=== PATIENT | male | born 1960 | race Caucasian/White ===

== ENCOUNTER 2018-11-17 10:46 | Day surgery (SDC) | payer OTHER ==
[2018-11-16 10:57] VITALS: Ht 177.8 cm; Wt 88.6 kg
[~2018-11-17] VITALS: Ht 177.8 cm; Wt 88.6 kg
[2018-11-17] VITALS (13 sets, daily range): BP systolic 123–148; BP diastolic 71–82; PULSE 52–77; RESP 13–20
--- NOTE | 2018-11-17 09:26 | HPN ---
Date/Time of Note Date/Time of Note DATE: 11/17/18 TIME: 09:26 Interval H&P Admission Note Pt. seen H&P reviewed: No system changes ILIA MCCLOUD MD November 17, 2018 09:26
[~2018-11-17 10:46] MED LIST: CEFAZOLIN 1 GM INJ ONE; CEFAZOLIN 2 GM/50 ML (PMX) 50 ML IVPB SCH; PROPOFOL 200 MG INJ ONE
[2018-11-17] MEDS ORDERED: GLIP10TA14 PO (11:57)
[2018-11-17] MEDS ORDERED: SIMV20TA20 PO (11:57)
[2018-11-17] MEDS ORDERED: METF100010 PO (11:57)
[2018-11-17] MEDS ORDERED: AMLO-147 PO (11:57)
[2018-11-17] MEDS: LACTATED RINGER'S 1,000 ML IV SCH ×2 (11:58→13:59)
[2018-11-17] MEDS ORDERED: ASPI-818 PO (12:03)
[2018-11-17] MEDS ORDERED: SITA100T11 PO (12:03)
[2018-11-17] MEDS ORDERED: OMEP20CA16 PO (12:03)
--- NOTE | 2018-11-17 12:17 | PREAC ---
Date/Time of Note Date/Time of Note DATE: 11/17/18 TIME: 12:15 Anesthesia Eval and Record Evaluation Time Pre-Procedure Interview DATE: 11/17/18 TIME: 12:15 Age 58 Sex male NPO: 8 hrs Preoperative diagnosis right renal stones Planned procedure right eswl Past Medical History Past Medical History: Includes Cardio: HTN, Dyslipidemia Endo: Diabetes Renal: Other (bph) Surgery & Anesthesia Issues No known issue Meds Anticoagulation: No Beta Yvonne within 24 hr: No Reason Beta Yvonne not given: Pt. not on B-Yvonne Reported Medications Aspirin (Aspirin Low Dose) 81 Mg Tablet.dr, 81 MG PO DAILY 11/17/18 Omeprazole* (Omeprazole*) 20 Mg Capsule.dr, 20 MG PO DAILY, #30 CAP 11/17/18 Sitagliptin* (Januvia*) 100 Mg Tablet, 100 MG PO DAILY, #30 TAB 11/17/18 Amlodipine Besylate* (Amlodipine Besylate*) 10 Mg Tablet, 10 MG PO DAILY 11/17/18 Glipizide* (Glipizide*) 10 Mg Tablet, 10 MG PO BID 11/17/18 Metformin Hcl* (Metformin Hcl*) 1,000 Mg Tablet, 1000 MG PO BID 11/17/18 Simvastatin (Simvastatin) 20 Mg Tablet, 20 MG PO DAILY 11/17/18 Current Medications Cefazolin Sodium/ Dextrose 50 ml @ 100 mls/hr PRE-OP IVPB ; Start 11/17/18 at 06:00; Stop 11/17/18 at 15:00 Lactated Ringer's 1,000 ml @ 25 mls/hr Q24H IV Last administered on 11/17/18at 11:58; Admin Dose 25 MLS/HR; Start 11/17/18 at 11:43 Meds reviewed: Yes Allergies Coded Allergies: No Known Allergy (Unverified , 11/16/18) Allergies Reviewed: Yes Labs/Studies Labs Reviewed: Reviewed by anesthesiologist test: N/A Studies: ECG, CXR Pre-procedure Exam Last vitals Vital Signs Date Temp Pulse Resp B/P (MAP) Pulse Ox O2 O2 Flow FiO2 Time Delivery Rate 11/17/18 97.7 77 16 125/72 99 Room Air 11:47 (89) Airway: Adequate mouth opening, Adequate thyromental dist Mallampati: Mallampati II Teeth: Normal Lung: Normal Heart: Normal ASA Physical Status ASA physical status: 2 Emergency: None Planned Anesthetic General/MAC: LMA Planned Pain Management Parenteral pain med Pre-operative Attestations Prior to commencing anesthesia and surgery, the patient was re-evaluated, there was verification of: *The patient's identity *The results of appropriate recent lab work and preoperative vital signs *The above evaluation not changing prior to induction *Anesthetic plan, risk benefits, alternative and complications discussed with patient/family; questions answered; patient/family understands, accepts and wishes to proceed. TIMUR LACY November 17, 2018 12:17
[2018-11-17] MEDS ORDERED: PROPOFOL 60 ML ONE (12:34)
[2018-11-17] MEDS ORDERED: ROCURONIUM 50 MG INJ ONE (12:34)
[2018-11-17] MEDS ORDERED: LIDOCAINE 2% (SDV) 5 ML INJ ONE (12:34)
[2018-11-17] MEDS ORDERED: NEOSTIGMINE 3 MG/3 ML SYRINGE ONE (13:31)
[2018-11-17] MEDS ORDERED: GLYCOPYRROLATE 0.4 MG INJ ONE (13:31)
[2018-11-17] MEDS ORDERED: FUROSEMIDE 20 MG INJ ONE (13:46)
--- NOTE | 2018-11-17 13:48 | OPR ---
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 He was positioned in the supine position on the lithotripsy machine table. He was given general anesthesia and 2 g of Ancef at the start of the procedure. Timeout was done and the patient was identified by his name, birthdate, the procedure and the side of the procedure. The stone located in the right kidney and measuring 15 mm was then visualized on both screens. The shockwave lithotripsy was then started. The energy level started with 3 KV and went up to 7 gradually. The position of the stone was checked regularly every 200 shockwaves. The stone appeared to be breaking well and the total shockwaves delivered were 2400 shocks. The patient tolerated the procedure well and was transferred to the recovery room in a stable and satisfa ctory condition. ILIA MCCLOUD MD November 17, 2018 13:48
[2018-11-17] MEDS ORDERED: hydrALAzine 20 MG INJ IV PRN (14:00)
[2018-11-17] MEDS ORDERED: MEPERIDINE 25 MG INJ IV PRN (14:00)
[2018-11-17] MEDS ORDERED: FUROSEMIDE 20 MG INJ IV ONE (14:00)
[2018-11-17] MEDS ORDERED: FENTAnyl 50 MCG/ML VIAL IV PRN ×3 (14:00)
[2018-11-17] MEDS ORDERED: METOCLOPRAMIDE 10 MG INJ IV PRN (14:00)
[2018-11-17] MEDS ORDERED: HYDROCODONE/APAP (5/325) TAB PO PRN (14:00)
[2018-11-17] MEDS ORDERED: HYDROmorphONE 1 MG/5 ML IV SYRINGE IV PRN ×2 (14:00)
[2018-11-17] MEDS ORDERED: OXYCODONE/ACETAMINOPHEN (5/325) TAB PO PRN ×2 (14:00)
[2018-11-17] MEDS ORDERED: LABETALOL HCL 20MG INJ IV PRN (14:00)
[2018-11-17] MEDS ORDERED: DIPHENHYDRAMINE 50 MG INJ IV PRN (14:00)
[2018-11-17] MEDS ORDERED: KETOROLAC 30 MG INJ IV PRN (14:00)
[2018-11-17] MEDS ORDERED: ONDANSETRON 4 MG INJ IV PRN ×2 (14:00)
[2018-11-17] MEDS ORDERED: EPHEDrine 25 MG/5 ML SYG IV PRN (14:00)
--- NOTE | 2018-11-17 14:00 | PAC ---
Date/Time of Note Date/Time of Note DATE: 11/17/18 TIME: 14:00 Post-Anesthesia Notes Post-Anesthesia Note Last documented vital signs Vital Signs Date Temp Pulse Resp B/P (MAP) Pulse Ox O2 O2 Flow FiO2 Time Delivery Rate 11/17/18 97.7 77 16 125/72 99 Room Air 1400 (89) Activity: WNL Respiratory function: WNL Cardiovascular function: WNL Mental status: Baseline Pain reasonably controlled: Yes Hydration appropriate: Yes Nausea/Vomiting absent: Yes TIMUR LACY November 17, 2018 14:00
== END 2018-11-17 15:31 | disposition home or self-care (01) ==
LOC: SDS 10:46
PROVIDERS: ATTEND Urology
DX: N20.0 Calculus of kidney (principal); I10 Essential (primary) hypertension; E11.9 Type 2 diabetes mellitus without complications; Z79.82 Long term (current) use of aspirin; Z79.84 Long term (current) use of oral hypoglycemic drugs
CPT/HCPCS: 50590; 74430; 82962; J0690; J1170; J1940; J2405; J2710; J3010; Z7512; Z7610

== ENCOUNTER 2018-11-21 00:37 | Inpatient (IN) | payer OTHER ==
[~2018-11-21] VITALS: Ht 175.3 cm; Wt 90.1 kg
[~2018-11-21 00:37] MED LIST changes: +AMLO-147 PO; +ASPI-818 PO; -CEFAZOLIN 1 GM INJ ONE; -CEFAZOLIN 2 GM/50 ML (PMX) 50 ML IVPB SCH; +GLIP10TA14 PO; +METF100010 PO; +OMEP20CA16 PO; -PROPOFOL 200 MG INJ ONE; +SIMV20TA20 PO; +SITA100T11 PO
[2018-11-21 00:41] VITALS: Ht 175.3 cm; Wt 90.1 kg
[2018-11-21] MEDS ORDERED: ONDANSETRON 4 MG INJ IV STA (01:12)
[2018-11-21] MEDS ORDERED: HYDROmorphONE 1 MG/ML SYG IV STA (01:12)
[2018-11-21] MEDS ORDERED: SOD CHLORIDE 0.9% 1,000 ML IV STA (01:12)
[2018-11-21] MEDS ORDERED: HYDROmorphONE 0.5 MG/0.5 ML SYG IV STA (02:53)
[2018-11-21] MEDS ORDERED: TAMSULOSIN (SR) 0.4 MG CAP PO ONE (03:00)
[2018-11-21] MEDS ORDERED: ACETAMINOPHEN 325 MG TAB PO PRN (03:00)
[2018-11-21] MEDS ORDERED: NACL 0.9% 3 ML SYG IV SCH (03:00)
[2018-11-21] MEDS ORDERED: ONDANSETRON 4 MG INJ IV PRN (03:00)
[2018-11-21] MEDS ORDERED: DOCUSATE SODIUM 100 MG CAP PO PRN (03:00)
[2018-11-21] MEDS ORDERED: HYDROmorphONE 0.5 MG/0.5 ML SYG IV PRN (03:00)
[2018-11-21] MEDS ORDERED: BISACODYL (EC) 5 MG TAB PO PRN (03:00)
[2018-11-21] MEDS ORDERED: KETOROLAC 15 MG INJ IV PRN (03:00)
[2018-11-21 03:50] VITALS: BP 167/67; RESP 16
--- NOTE | 2018-11-21 04:10 | ERD ---
ER Documentation Chief Complaint Chief Complaint post op kidney surgery(stone)3 days ago, c/o right abd pain HPI Is a 58-year-old male comes in with complaints of postop pain from lithotripsy. He complains of increasing flank pain over the past 2 to 3 days. Denies any fevers or chills. Mild nausea but no vomiting. Pain is mild to moderate intensity with no exacerbating or alleviating factors. ROS All systems reviewed and are negative except as per history of present illness. Medications Home Meds Reported Medications Aspirin (Aspirin Low Dose) 81 Mg Tablet.dr, 81 MG PO DAILY 11/17/18 Omeprazole* (Omeprazole*) 20 Mg Capsule.dr, 20 MG PO DAILY, #30 CAP 11/17/18 Sitagliptin* (Januvia*) 100 Mg Tablet, 100 MG PO DAILY, #30 TAB 11/17/18 Amlodipine Besylate* (Amlodipine Besylate*) 10 Mg Tablet, 10 MG PO DAILY 11/17/18 Glipizide* (Glipizide*) 10 Mg Tablet, 10 MG PO BID 11/17/18 Metformin Hcl* (Metformin Hcl*) 1,000 Mg Tablet, 1000 MG PO BID 11/17/18 Simvastatin (Simvastatin) 20 Mg Tablet, 20 MG PO DAILY 11/17/18 Allergies Allergies: Coded Allergies: No Known Allergy (Unverified , 11/16/18) PMhx/Soc History of Surgery: Yes (KIDNEY ) Anesthesia Reaction: No Hx Neurological Disorder: No Hx Respiratory Disorders: No Hx Cardiac Disorders: Yes (HTN, HIGH CHOLESTEROL) Hx Psychiatric Problems: No Hx Miscellaneous Medical Probl: No Hx Alcohol Use: No Hx Substance Use: No Hx Tobacco Use: Yes Smoking Status: Current every day smoker Physical Exam Vitals Vital Signs Date Temp Pulse Resp B/P (MAP) Pulse Ox O2 O2 Flow FiO2 Time Delivery Rate 11/21/18 82 19 133/79 97 Room Air 02:29 (97) 11/21/18 99.7 91 18 154/78 96 00:41 (103) Physical Exam Const: No acute distress Head: Atraumatic Eyes: Normal Conjunctiva ENT: Normal External Ears, Nose and Mouth. Neck: Full range of motion. No meningismus. Resp: Clear to auscultation bilaterally Cardio: Regular rate and rhythm, no murmurs Abd: Soft, non tender, non distended. Normal bowel sounds Skin: No petechiae or rashes Back: No midline or flank tenderness Ext: No cyanosis, or edema Neur: Awake and alert Psych: Normal Mood and Affect Result Diagram: 11/21/18 0120 11/21/18 0120 Results 24 hrs Laboratory Tests Test 11/21/18 01:20 White Blood Count 11.4 10^3/ul Red Blood Count 4.77 10^6/ul Hemoglobin 13.1 g/dl Hematocrit 39.0 % Mean Corpuscular Volume 81.8 fl Mean Corpuscular Hemoglobin 27.5 pg Mean Corpuscular Hemoglobin Concent 33.6 g/dl Red Cell Distribution Width 12.6 % Platelet Count 209 10^3/UL Mean Platelet Volume 11.5 fl Immature Granulocytes % 0.400 % Neutrophils % 75.4 % Lymphocytes % 15.7 % Monocytes % 7.7 % Eosinophils % 0.3 % Basophils % 0.5 % Nucleated Red Blood Cells % 0.0 /100WBC Immature Granulocytes # 0.040 10^3/ul Neutrophils # 8.6 10^3/ul Lymphocytes # 1.8 10^3/ul Monocytes # 0.9 10^3/ul Eosinophils # 0.0 10^3/ul Basophils # 0.1 10^3/ul Nucleated Red Blood Cells # 0.0 10^3/ul Sodium Level 135 mmol/L Potassium Level 4.1 mmol/L Chloride Level 96 mmol/L Carbon Dioxide Level 26 mmol/L Anion Gap 13 Blood Urea Nitrogen 17 mg/dl Creatinine 0.73 mg/dl Est Glomerular Filtrat Rate mL/min > 60 mL/min Glucose Level 230 mg/dl Calcium Level 9.3 mg/dl Total Bilirubin 0.8 mg/dl Direct Bilirubin 0.00 mg/dl Indirect Bilirubin 0.8 mg/dl Aspartate Amino Transf (AST/SGOT) 17 IU/L Alanine Aminotransferase (ALT/SGPT) 21 IU/L Alkaline Phosphatase 77 IU/L Total Protein 7.6 g/dl Albumin 4.3 g/dl Globulin 3.30 g/dl Albumin/Globulin Ratio 1.30 Lipase 33 U/L Current Medications Medications Dose Sig/Candy Start Time Status Last (Trade) Ordered Route PRN Stop Time Admin Dose Reason Admin Sodium 1,000 ml @ Q1H STAT 11/21/18 DC 11/21/18 Chloride 1,000 mls/hr IV 01:12 01:16 11/21/18 02:11 1 mg ONCE STAT 11/21/18 DC 11/21/18 Hydromorphone IV 01:12 01:16 HCl 11/21/18 01:14 (Dilaudid) Ondansetron 4 mg ONCE STAT 11/21/18 DC 11/21/18 HCl (Zofran IV 01:12 01:16 Inj) 11/21/18 01:14 1 mg ONCE STAT 11/21/18 DC 11/21/18 Hydromorphone IV 02:53 03:24 HCl 11/21/18 02:54 (Dilaudid) Sodium 1,000 ml @ Q10H IV 11/21/18 Chloride 100 mls/hr 02:57 IV Flush 3 ml PER 11/21/18 (NS 3 ml) PROTOCOL IV 03:00 Ondansetron 4 mg Q6H PRN 11/21/18 HCl (Zofran IV 03:00 Inj) NAUSEA/VOMITI NG 650 mg Q6H PRN 11/21/18 Acetaminophen PO .PAIN 1-3 03:00 (Tylenol OR TEMP Tab) 1 mg Q4H PRN 11/21/18 Hydromorphone IV .SEVERE 03:00 HCl PAIN 7-10 (Dilaudid) Docusate 100 mg Q12H PRN 11/21/18 Sodium PO 03:00 (Colace) .CONSTIPATION Bisacodyl 5 mg DAILY PRN 11/21/18 (Dulcolax) PO 03:00 .CONSTIPATION Tamsulosin 0.4 mg ONCE ONCE 11/21/18 DC 11/21/18 HCl PO 03:00 03:29 (Flomax) 11/21/18 03:01 Ketorolac 15 mg Q6H PRN 11/21/18 Tromethamine IV PAIN 03:00 (Toradol) 11/24/18 02:59 Procedures/MDM Medical decision making: 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 He does still has a 1.6 cm stone that is not stuck at the UVJ. Patient will be admitted with urology consultation to the hospitalist. Departure Diagnosis: Primary Impression: Hydronephrosis with renal and ureteral calculous obstruction Condition: Serious FINN BOLTON November 21, 2018 04:10
[2018-11-21] MEDS ORDERED: HYDR-3601 PO (05:00)
[2018-11-21] MEDS ORDERED: LOSA25TA12 PO (05:02)
[2018-11-21] MEDS ORDERED: ATOR20TA65 PO (05:02)
[2018-11-21] MEDS ORDERED: TRIA15CR55 (05:04)
[2018-11-21] MEDS: SOD CHLORIDE 0.9% 1,000 ML IV SCH ×3 (05:07→15:18)
[2018-11-21] MEDS ORDERED: hydrALAzine 20 MG INJ IV PRN (05:30)
[2018-11-21] MEDS ORDERED: GLUCOSE GEL 15 GRAM TUBE PO PRN ×2 (05:30)
[2018-11-21] MEDS ORDERED: GLUCOSE GEL 15 GRAM TUBE BUCCAL PRN (05:30)
[2018-11-21] MEDS ORDERED: DEXTROSE 50% 50 ML SYRINGE IV PRN ×2 (05:30)
[2018-11-21] MEDS ORDERED: GLUCAGON 1 MG INJ IM PRN (05:30)
[2018-11-21] MEDS ORDERED: PANTOPRAZOLE (EC) 40 MG TAB PO SCH (06:00)
[2018-11-21 07:54] VITALS: BP 137/77; PULSE 88; RESP 18
--- NOTE | 2018-11-21 08:10 | HP ---
Date/Time of Note Date/Time of Note DATE: 11/21/18 TIME: 08:10 Assessment/Plan VTE Prophylaxis SCD applied (from Nsg): Yes Pharmacological prophylaxis: NA/contraindicated Pharm contraindication: low risk/ambulating Lines/Catheters IV Catheter Type (from Nrsg): Saline Lock Assessment/Plan Hospital Course This is a 58-year-old male being admitted to the [facility] floor for: #1 obstructing right nephrolithiasis with hydroureteronephrosis: Status post ESWL on the . IV fluid hydration with normal saline. Flomax. Dilaudid, Toradol for pain. We will keep the patient n.p.o. For possible procedure in the a.m. Will obtain a PT/INR in the a.m. Urology has already been consulted. #2 diabetes mellitus: Hold patient's home medications, insulin sliding scale, check hemoglobin A 1C #3 hypertension: Continue patient's home blood pressure medications #4 DVT GI prophylaxis: SCDs, no GI prophylaxis indicated Further treatment strategy will be implemented as per the clinical course Result Diagram: 11/21/18 0425 11/21/18 0425 Results 24hrs Laboratory Tests Test 11/21/18 01:20 11/21/18 04:25 White Blood Count 11.4 H 10.9 H Red Blood Count 4.77 4.48 L Hemoglobin 13.1 L 12.4 L Hematocrit 39.0 L 36.8 L Mean Corpuscular Volume 81.8 L 82.1 Mean Corpuscular Hemoglobin 27.5 L 27.7 L Mean Corpuscular Hemoglobin Concent 33.6 33.7 Red Cell Distribution Width 12.6 12.9 Platelet Count 209 194 Mean Platelet Volume 11.5 H 11.5 H Immature Granulocytes % 0.400 0.300 Neutrophils % 75.4 71.5 Lymphocytes % 15.7 19.9 Monocytes % 7.7 7.6 Eosinophils % 0.3 0.3 Basophils % 0.5 0.4 Nucleated Red Blood Cells % 0.0 0.0 Immature Granulocytes # 0.040 H 0.030 Neutrophils # 8.6 H 7.8 H Lymphocytes # 1.8 2.2 Monocytes # 0.9 0.8 Eosinophils # 0.0 0.0 Basophils # 0.1 0.0 Nucleated Red Blood Cells # 0.0 0.0 Sodium Level 135 137 Potassium Level 4.1 4.2 Chloride Level 96 L 101 Carbon Dioxide Level 26 25 Anion Gap 13 11 Blood Urea Nitrogen 17 18 Creatinine 0.73 0.86 Est Glomerular Filtrat Rate mL/min > 60 > 60 Glucose Level 230 H 169 Calcium Level 9.3 9.0 Total Bilirubin 0.8 0.5 Direct Bilirubin 0.00 0.00 Indirect Bilirubin 0.8 0.5 Aspartate Amino Transf (AST/SGOT) 17 16 Alanine Aminotransferase (ALT/SGPT) 21 21 Alkaline Phosphatase 77 59 Total Protein 7.6 6.8 Albumin 4.3 4.0 Globulin 3.30 H 2.80 Albumin/Globulin Ratio 1.30 1.42 Lipase 33 Prothrombin Time 13.3 Prothrombin Time Ratio 1.0 INR International Normalized Ratio 1.00 Activated Partial Thromboplast Time 26.6 Hemoglobin A1c 8.4 H Magnesium Level 1.8 Triglycerides Level 131 Cholesterol Level 122 LDL Cholesterol, Calculated 66 HDL Cholesterol 30 Cholesterol/HDL Ratio 4.0 Thyroid Stimulating Hormone (TSH) 1.930 HPI/ROS Admit Date/Time Admit Date/Time November 21, 2018 at 03:06 Hx of Present Illness Allergies: Abdominal pain rating to the flank x1 day This is a 58-year-old male who presented to the emergency department with complaints of right flank pain radiating to the back. Patient had a outpatient procedure done by urology on 11/17/2018 secondary to kidney stones. He had a extracorporeal shockwave lithotripsy. Patient states that he went home and he was passing kidney stones. He then reports that last night he started experiencing right lower abdominal pain radiating to the flank. He denies any fevers. Denies any vomiting nausea vomiting or diarrhea. He was taking Cobb at home but it was not helping. Surgeries: NKDA Medications: See Aug Const: As per HPI Eyes : No pain discharge or redness or change in visual acuity ENT: No pain, sore throat, congestion, congestion, dysphagia or discharge Respiratory: No shortness of breath, cough, sputum, wheezing, or pleuritic pain Cardiovascular: No chest pain, palpitation, PND, or edema GI : no change in appetite, abdominal pain, nausea, vomiting, diarrhea, consti pation, or change in the color his stool Genitourinary: as per HPI Musculoskeletal: No joint pain, back pain, neck pain, restricted range of motion in neck or joints Skin: No rash, bruising or hives Neuro: No headache, dizziness, syncope, seizure, focal weakness Endocrine: No polyuria, polydipsia, temperature intolerance Psych: No hallucination, depression, anxiety or suicidal ideation PMH/Family/Social Past Medical History DM, HTN, kidney stones Medications Current Medications Sodium Chloride 1,000 ml @ 100 mls/hr Q10H IV Last administered on 11/21/18at 05:07; Admin Dose 100 MLS/HR; Start 11/21/18 at 02:57 IV Flush (NS 3 ml) 3 ml PER PROTOCOL IV Last administered on 11/21/18at 05:09; Admin Dose 3 ML; Start 11/21/18 at 03:00 Ondansetron HCl (Zofran Inj) 4 mg Q6H PRN IV NAUSEA/VOMITING; Start 11/21/18 at 03:00 Acetaminophen (Tylenol Tab) 650 mg Q6H PRN PO .PAIN 1-3 OR TEMP; Start 11/21/18 at 03:00 Hydromorphone HCl (Dilaudid) 1 mg Q4H PRN IV .SEVERE PAIN 7-10; Start 11/21/18 at 03:00 Docusate Sodium (Colace) 100 mg Q12H PRN PO .CONSTIPATION; Start 11/21/18 at 03:00 Bisacodyl (Dulcolax) 5 mg DAILY PRN PO .CONSTIPATION; Start 11/21/18 at 03:00 Tamsulosin HCl (Flomax) 0.4 mg HS PO ; Start 11/21/18 at 21:00 Ketorolac Tromethamine (Toradol) 15 mg Q6H PRN IV PAIN; Start 11/21/18 at 03: 00; Stop 11/24/18 at 02:59 Diagnostic Test (Pha) (Accu-Chek) 1 ea 02 XX ; Start 11/22/18 at 02:00 Insulin Aspart (Novolog Insulin Pen) NOVOLOG *MILD* ALGORI... Q4 SC ; Start 11/21/18 at 09:00 Amlodipine Besylate (Norvasc) 10 mg DAILY PO ; Start 11/21/18 at 09:00 Atorvastatin Calcium (Lipitor) 20 mg DAILY PO ; Start 11/21/18 at 09:00 Pantoprazole (Protonix Tab) 40 mg DAILY@06 PO Last administered on 11/21/18at 06:12; Admin Dose 40 MG; Start 11/21/18 at 06:00 Miscellaneous Information 1 ea NOTE XX ; Start 11/21/18 at 05:30 Glucose (Glutose) 15 gm Q15M PRN PO DECREASED GLUCOSE; Start 11/21/18 at 05:30 Glucose (Glutose) 22.5 gm Q15M PRN PO DECREASED GLUCOSE; Start 11/21/18 at 05:30 Dextrose (D50w Syringe) 25 ml Q15M PRN IV DECREASED GLUCOSE; Start 11/21/18 at 05:30 Dextrose (D50w Syringe) 50 ml Q15M PRN IV DECREASED GLUCOSE; Start 11/21/18 at 05:30 Glucagon (Glucagen) 1 mg Q15M PRN IM DECREASED GLUCOSE; Start 11/21/18 at 05:30 Glucose (Glutose) 15 gm Q15M PRN BUCCAL DECREASED GLUCOSE; Start 11/21/18 at 05:30 Hydralazine HCl (Apresoline) 10 mg Q4H PRN IV ELEVATED BLOOD PRESSURE; Start 11/21/18 at 05:30 Coded Allergies: No Known Allergy (Unverified , 11/21/18) Past Surgical History ESWL Family History Significant Family History: no pertinent family hx Social History Alcohol Use: none Smoking Status: Current every day smoker Drug Use: none Exam/Review of Systems Vital Signs Vitals Vital Signs Date Temp Pulse Resp B/P (MAP) Pulse Ox O2 O2 Flow FiO2 Time Delivery Rate 11/21/18 98.2 88 18 137/77 98 Room Air 07:54 (97) Intake and Output 11/20/18 11/20/18 11/21/18 1515:00 23:00 07:00 IntakeIntake Total 100 ml OutputOutput Total 400 ml BalanceBalance -300 ml Exam Exam General: Currently lying in bed in no acute distress HEENT: Atraumatic, normocephalic. The pupils are equal, round and reactive. Extraocular motor are intact Neck: Supple with full range of motion. No rigidity or meningismus Chest: Nontender Lungs: Clear to auscultation bilaterally no crackles rales or wheezing Heart: Normal S1-S2, Regular rhythm and rate. No murmur, S3, or S4 Abdomen: Soft , nontender, nondistended , bowel sounds are present. No guarding no rebound tenderness , No masses or organomegaly. Genitourinary: Currently does not report any CVA tenderness after receiving medications in the emergency department Extremities: Normal to inspection, no edema no cyanosis Neurologic: Normal mental status, speech normal, cranial nerves II through XII are intact, motor and sensory are intact, no focal weakness Additional Comments PROCEDURE: CT Abdomen and pelvis without contrast. CLINICAL INDICATION: Abdominal pain TECHNIQUE: CT scan of the abdomen and pelvis without contrast was performed on a multidetector high-resolution CT scan. . Coronal and sagittal reformatted images were obtained from the axial source images. Standard CT scan of the abdomen pelvis without contrast protocols were performed. The total exam CTDI equals 15.24 mGy and the total exam DLP equals 1046.51 mGy- cm. One or more of the following dose reduction techniques were used: - Automated exposure control. - Adjustment of the mA and/or kV according to patient size. Use of iterative reconstruction technique. Dicom images are available COMPARISON: None. FINDINGS: There are multiple obstructing abutting distal right ureteral calcified calculi numbering at least 4 small calcified calculi the overall sagittal dimension 1.6 cm with moderate right hydroureter and moderate to severe right hydronephrosis. Additional staghorn calculus involving the inferior right renal collecting system the largest diameter measuring 2.1 cm. Additional numerous small nonobstructing mid and superior right renal calcified calculi. There are multiple small dependent urinary bladder calcified calculi the largest to the left of midline measuring 4 mm. No left urinary calcified calculi. No left obstructive uropathy. There is a pedunculated 1.3 cm hyper dense nodule involving the posterior superior left kidney consistent with a proteinaceous/hemorrhagic cyst. No other intra masses bilaterally. The urinary bladder and prostate are otherwise unremarkable. Normal size liver with diffuse hepatic fatty infiltration. No focal hepatic lesions. Spleen pancreas and adrenal glands are unremarkable. Gallbladder unremarkable. No biliary ductal dilation. Moderate stool burden throughout the colon consistent with constipation. The colon is otherwise unremarkable. Stomach, small bowel and appendix unremarkable. No evidence of intra-abdominal free air, free fluid, abscesses or lymphadenopathy. Atherosclerosis of the aorta without aneurysm. Abdominal pelvic wall unremarkable. Coronary artery disease. Mild chronic basilar interstitial lung disease with bibasilar pleural thickening. Degenerative changes lower thoracic and lumbar spine without acute osseous findings are osteoblastic/osteolytic lesions. IMPRESSION: 1. Multiple at least 4 abutting small obstructing distal right ureteral calcified calculi overall gland 1.6 cm with moderate to severe right hydronephrosis and moderate hydroureter. 2. Additional multiple right renal nonobstructing calcified calculi as described above. 3. No left urinary calcified calculi or obstructive uropathy. 4. Numerous dependent urinary bladder calcified calculi the largest measuring 4 mm to the left of midline. 5. 1.3 cm hyper dense posterior superior left renal nodule consistent with a proteinaceous/hemorrhagic cyst. 6. Hepatic fatty infiltration. 7. Constipation. RPTAT:AAJJ Physician Mariama Date Time Electronically viewed and signed by Traci Hassan Physician on 11/21/2018 02:40 BM/ CC: FINN BOLTON [phone] JANETH CARDENAS November 21, 2018 08:10
[2018-11-21] MEDS ORDERED: AMLODIPINE 10 MG TAB PO SCH (09:00)
[2018-11-21] MEDS ORDERED: ATORVASTATIN 20 MG TAB PO SCH (09:00)
[2018-11-21] MEDS ORDERED: INSULIN ASPART [NOVOLOG] 3 ML PEN SC SCH (09:00)
[2018-11-21] MEDS: INSULIN ASPART [NOVOLOG] 3 ML PEN SC SCH ×2 (11:10→17:25)
[2018-11-21 15:07] VITALS: BP 130/78; PULSE 84; RESP 18
--- NOTE | 2018-11-21 15:54 | PN ---
DATE: 11/21/2018 SUBJECTIVE: The patient, Garrett, is stable this morning. No respiratory distress. No significant ab dominal pain, pending urology evaluation. PHYSICAL EXAMINATION: VITAL SIGNS: Temperature 98, pulse is 88, blood pressure 137/77, O2 saturation 98% on room air. NECK: Supple. No JVD or lymphadenopathy. CARDIAC: S1, S2, no added sounds or murmur. CHEST: Diminished air entry bilaterally. ABDOMEN: Soft, nontender. No guarding or rebound. EXTREMITIES: No cyanosis, clubbing, edema. NEUROLOGIC: Grossly intact. No focal deficits. LABORATORY DATA: White count 10.9, hemoglobin 12.4, platelets 194. BUN 18, creatinine 0.86. IMPRESSION: 1. Obstructing right nephrolithiasis with hydroureteronephrosis, pending urology evaluation. 2. History of diabetes mellitus. 3. History of essential hypertension. PLAN: 1. Urinalysis and urology evaluation. 2. Check procalcitonin regarding need for possible antibiotics. 3. Pain control. 4. DVT and GI prophylaxis. Dictated By: RADHA MCKEON/VI Conf#: [id number] DID#: [id number]
--- NOTE | 2018-11-21 18:32 | PN ---
Date/Time of Note Date/Time of Note DATE: 11/21/18 TIME: 18:27 Assessment/Plan Lines/Catheters IV [facility] Type ([facility] Peripheral IV Assessment/Plan Chief Complaint/Hosp Course 58-year-old male status post extracorporeal shockwave lithotripsy last week he was doing well and on 11/20/2018 he started having severe pain that was not relieved with oral pain medications. He therefore presented to the emergency room and underwent a CT scan of the abdomen and pelvis and that did show multiple stone fragments in the kidney and multiple stone fragments in the distal right ureter about 5 of them near the ureterovesical junction and there are also other fragments within the bladder itself. The patient should be able to pass the stone fragments and since he is not having severe pain he may be discharged home. I wrote him a prescription for Norco10/325mg to use after he ran out of the one I prescribed to him earlier. He should continue to strain his urine at home and come to the office in about 1 to 2 weeks for follow-up. Subjective 24 Hr Interval Summary Presently the patient is comfortable. He was having severe pain on 11/20/2018 and the pain was not relieved by the [place] 5/325mg. He has not had any pain since he was admitted. Exam/Review of Systems Vital Signs Vitals Vital Signs Date Temp Pulse Resp B/P (MAP) Pulse Ox O2 O2 Flow FiO2 Time Delivery Rate 11/21/18 98.0 84 18 130/78 92 Room Air 15:07 (95) Intake and Output 11/20/18 11/20/18 11/21/18 1515:00 23:00 07:00 IntakeIntake Total 100 ml OutputOutput Total 400 ml BalanceBalance -300 ml Exam Free Text/Dictation Patient is resting comfortably in his bed. He is voiding well and the urine is clear. He did pass some stone fragments before his admission but not today. Results Result Diagram: 11/21/18 0425 11/21/18 0425 ILIA MCCLOUD MD November 21, 2018 18:32
[2018-11-21] MEDS ORDERED: TAMSULOSIN (SR) 0.4 MG CAP PO SCH (21:00)
[2018-11-22] MEDS ORDERED: ACCU-CHEK XX SCH (02:00)
== END 2018-11-21 18:34 | disposition home or self-care (01) | DRG 694 ==
LOC: E/R 00:37 → MS1 03:06
PROVIDERS: ADMIT Family Medicine; ATTEND Family Medicine
DX: N20.2 Calculus of kidney with calculus of ureter (principal); E11.9 Type 2 diabetes mellitus without complications; I10 Essential (primary) hypertension
CPT/HCPCS: 36415; 71045; 74176; 80053; 80061; 81001; 82962; 83036; 83690; 83735; 84145; 84443; 85025; 85610; 85730; 87086; 96374; 96375; J1170; J1815; J1885; J2405; J7030